=== PATIENT | female | born 1980 | race African-American/Black ===

== ENCOUNTER 2020-02-15 21:17 | Emergency (ER) | payer BC ==
[~2020-02-15] VITALS: Ht 180.3 cm; Wt 86.6 kg
[2020-02-15 21:31] VITALS: BP 123/76
--- NOTE | 2020-02-15 21:31 | NUR ---
PATIENT POSITIONED FOR COMFORT; HOB ELEVATED; BEDRAILS UP X2; BED DOWN. ER MD MADE AWARE OF PT STATUS.
--- NOTE | 2020-02-15 21:31 | NUR ---
C/O INTERMITTENT CHEST PAIN, BACK PAIN, VOMITING X 1 YEAR. 8/10 PAIN. CHEST PAIN IS RADIAITNG TO BACK. VSS. A&O X4. ABD IS FLAT, SOFT, NONTENDER, ACTIVE BS. DENIES ANY BLOOD IN THE URINE, STOOL, OR IN HER VOMIT. +VOMITING, + NAUSEA. +CHANGES OF APPETITE. UNABLE TO HOLD LIQUID OR FOOD DOWN. LAST BM WAS 02/13 AND PT DESCRIBES IT NORMAL. HEART SOUNDS S1S2 PRESENT. LUNG SOUNDS CLEAR ALL THROUGHOUT. CAP REFILL < 3. RADIAL PULSES PRESENT +2. MHX: GERD NKA. Addendum: 02/15/20 at 2235 by [facility]: GERD, PANCREATITIS
--- NOTE | 2020-02-15 21:35 | NUR ---
PT TAKEN TO BED 11 WITH STEADY GAIT.
--- NOTE | 2020-02-15 21:40 | NUR ---
NIKKO TA PERFORMING EKG AT BEDSIDE.
[2020-02-15] MEDS ORDERED: NACL 0.9% 500 ML IV ONE (21:46)
[2020-02-15] MEDS ORDERED: ONDANSETRON 4 MG/2 ML VIAL IVP ONE (21:50)
[2020-02-15] MEDS ORDERED: KETOROLAC 30 MG/ML VIAL IVP ONE (21:50)
[2020-02-15 22:11] LABS: BASOPHILS # (AUTO) 0.1 K/uL (0.00-0.22); BASOPHILS % (AUTO) 1.2 % (0.0-2.0); EOSINOPHILS # (AUTO) 0.2 K/uL (0-0.4); EOSINOPHILS % (AUTO) 3.7 % (0.0-4.0); HEMATOCRIT 33.1 % (36-48); HEMOGLOBIN 10.7 g/dL (12.0-16.0); LYMPHOCYTES # (AUTO) 1.9 K/uL (2.5-16.5); MEAN CORPUSCULAR HEMOGLOBIN 25 pg (27-31); MEAN CORPUSCULAR HGB CONC 32 g/dL (33-37); MEAN CORPUSCULAR VOLUME 76.5 fL (80-94); MONOCYTES # (AUTO) 0.5 K/uL (0.8-1.0); MONOCYTES % (AUTO) 11.1 % (1.7-9.3); NEUTROPHILS # (AUTO) 2.1 K/uL (1.8-7.7); PLATELET COUNT (AUTO) 464 K/uL (140-450); RED BLOOD CELL COUNT(AUTO) 4.33 MIL/uL (4.20-5.40); RED CELL DISTRIBUTION WIDTH 15.8 % (11.6-13.7); WHITE BLOOD COUNT (AUTO) 4.7 K/uL (4.8-10.8)
--- NOTE | 2020-02-15 22:21 | NUR ---
US AT BEDSIDE.
[2020-02-15 22:28] LABS: ALBUMIN 3.1 g/dL (3.4-5.0); CARBON DIOXIDE 24.5 mmol/L (21-32); CREATININE 0.9 mg/dL (0.6-1.3); POTASSIUM 3.5 mmol/L (3.5-5.1); TOTAL BILIRUBIN 0.2 mg/dL (0.0-1.0)
[2020-02-15 23:23] VITALS: BP 123/76
--- NOTE | 2020-02-15 23:23 | NUR ---
Patient discharged with v/s stable. Written and verbal after care instructions given and explained. Patient alert, oriented and verbalized understanding of instructions. Ambulatory with steady gait. All questions addressed prior to discharge. ID band removed. Patient advised to follow up with PMD. Rx of ZOFRAN, CARAFATE, TRAMDOL, AND PROTONIX given. Patient educated on indication of medication including possible reaction and side effects. Opportunity to ask questions provided and answered.
== END 2020-02-15 23:23 | disposition home or self-care (01) ==
LOC: MED 21:17
DX: R11.2 Nausea with vomiting, unspecified (principal); R10.13 Epigastric pain; K85.90 Acute pancreatitis without necrosis or infection, unspecified
CPT/HCPCS: 36415; 71045; 76705; 80053; 83690; 84484; 85025; 93005; 96361; 96374; 96375; 99285; J1885; J2405; J7030; Q0092